=== PATIENT | female | born 1985 ===

== ENCOUNTER 2017-09-04 14:30 | Emergency (ER) | payer OTHER ==
[~2017-09-04] VITALS: Ht 170.2 cm; Wt 65.0 kg
[2017-09-04 14:33] VITALS: Ht 170.2 cm; Wt 65.0 kg
[2017-09-04] MEDS ORDERED: morphine 4 MG/ML VIAL IV STA ×2 (14:45→14:56)
[2017-09-04] MEDS ORDERED: ONDANSETRON 4 MG INJ IV STA (14:45)
[2017-09-04] MEDS ORDERED: FAMOTIDINE 20 MG INJ IV STA (14:45)
[2017-09-04] MEDS ORDERED: SOD CHLORIDE 0.9% 1,000 ML IV STA (14:45)
[2017-09-04] MEDS ORDERED: LORAZEPAM 2 MG INJ ONE (14:57)
[2017-09-04 15:00] LABS: BASOPHIL # 0.1 10^3/ul (0.0-0.1); BASOPHILS % 0.5 % (0.0-2.0); EOSINOPHILS # 0.4 10^3/ul (0.0-0.5); EOSINOPHILS % 3.8 % (0.0-7.0); HEMATOCRIT 39.9 % (37.0-47.0); HEMOGLOBIN 13.7 g/dl (12.0-16.0); LYMPHOCYTES # 2.9 10^3/ul (0.8-2.9); LYMPHOCYTES % 25.7 % (15.0-51.0); MEAN CORPUSCULAR HEMOGLOBIN 30.9 pg (29.0-33.0); MEAN CORPUSCULAR HGB CONC 34.3 g/dl (32.0-37.0); MEAN CORPUSCULAR VOLUME 90.1 fl (82.0-101.0); MEAN PLATELET VOLUME 10.7 fl (7.4-10.4); MONOCYTE # 0.7 10^3/ul (0.3-0.9); MONOCYTES % 5.8 % (0.0-11.0); NEUTROPHIL # 7.3 10^3/ul (1.6-7.5); NEUTROPHILS % 63.8 % (39.0-77.0); PLATELET COUNT 359 10^3/UL (140-415); RED BLOOD COUNT 4.43 10^6/ul (4.20-5.40); RED CELL DISTRIBUTION WIDTH 11.9 % (11.5-14.5); WHITE BLOOD COUNT 11.4 10^3/ul (4.8-10.8)
[2017-09-04] MEDS ORDERED: LORAZEPAM 2 MG INJ IV ONE (15:00)
[2017-09-04 15:37] LABS: URINE BLOOD (Dip) POC Negative (NEGATIVE)
[2017-09-04 15:38] LABS: ALBUMIN 4.4 g/dl (3.3-4.9); ALBUMIN/GLOBULIN RATIO 1.02; BILIRUBIN,INDIRECT 0.5 mg/dl (0-1.1); BILIRUBIN,TOTAL 0.5 mg/dl (0.2-1.3); CALCIUM 10.3 mg/dl (8.4-10.2); CREATININE 0.79 mg/dl (0.44-1.00); POTASSIUM 3.7 mmol/L (3.5-5.1); TOTAL PROTEIN 8.7 g/dl (6.1-8.1)
[2017-09-04] MEDS ORDERED: MULTI PO (15:46)
[2017-09-04] MEDS ORDERED: CHOL500062 PO (15:47)
[2017-09-04 15:57] LABS: ADD UMIC NO; UR ASCORBIC ACID NEGATIVE (NEGATIVE); UR BILIRUBIN (Dip) NEGATIVE (NEGATIVE); UR BLOOD (Dip) NEGATIVE (NEGATIVE); UR CLARITY CLEAR (CLEAR); UR COLOR STRAW (YELLOW); UR GLUCOSE (Dip) NEGATIVE (NEGATIVE); UR KETONES (Dip) NEGATIVE (NEGATIVE); UR LEUKOCYTE ESTERASE (Dip) NEGATIVE Leu/ul (NEGATIVE); UR NITRITE (Dip) NEGATIVE (NEGATIVE); UR SPECIFIC GRAVITY (Dip) 1.002 (1.003-1.030); UR TOTAL PROTEIN (Dip) NEGATIVE (NEGATIVE); UR UROBILINOGEN (Dip) NEGATIVE (NEGATIVE)
--- NOTE | 2017-09-04 18:08 | RADRPT ---
PROCEDURE: CT of the abdomen and pelvis without contrast CLINICAL INDICATION: Abdominal pain. TECHNIQUE: Spiral CT images through the abdomen and pelvis without the use of oral and without the use of intravenous contrast. The administered radiation dose is CTDI 5.63 and DLP 313.46. One or m ore of the following dose reduction techniques were used: automated exposure control, adjustment of the mA and/or kV according to patient size, or use of iterative reconstruction technique. COMPARISON: None FINDINGS: The study is limited by lack of intravenous contrast. Lower thorax: Slight dependent atalectasis of the lung bases is seen.. Liver: The liver is unremarkable in appearance. Biliary: The gallbladder is unremarkable.. No biliary ductal dilatation is seen. Pancreas: Unremarkable. No focal mass or inflammatory process. Spleen: The spleen is unremarkable in appearance Adrenal glands: Unremarkable in appearance. No focal nodule.. Genitourinary: No hydronephrosis or renal calculi are seen.. The bladder is unremarkable in appearan ce.. Gastrointestinal Tract: Evaluation of the bowel is limited by lack of oral contrast. Moderate stool burden is seen. No gross small bowel obstruction, free air, or abscess.. The appendix is not defini tely seen. Clips or possible suture material are seen in the right abdomen which could be due to citlalli or appendectomy.. Lymph nodes: No adenopathy is seen... Vascular structures: The aorta and mesenteric vessels are unremarkable.. Peritoneal cavity: Unremarkable mesentery and peritoneum.. No mass, edema, or ascites. Reproductive Organs: Unremarkable in appearance.. Musculoskeletal: No bony abnormality is seen.. IMPRESSION: Moderately large stool burden. No gross abnormality of the bowel is otherwise seen but the study is limited by lack of oral and intravenous contrast. If symptoms persist, repeat study with contrast wo uld be suggested.. RPTAT: [facility] Physician Christophe Date Time Electronically viewed and signed by Physician Christophe on 09/04/2017 18:08 LE/
[2017-09-04] MEDS ORDERED: LIDOCAINE/MYLANTA 40 ML BTL PO STA (18:09)
--- NOTE | 2017-09-04 18:16 | ERD ---
ER Documentation Chief Complaint Chief Complaint abdominal pain and nausea x 5 days HPI This is a 31-year-old female with a history of gastritis who presents to the emergency room for evaluation of abdominal pain. Patient states she has had abdominal pain for the past 3 days and localizes it to the midportion of her abdomen. The patient denies any spicy foods, she states she is mildly nauseous , denies any vomiting. She denies any shortness of breath however she came to the ER today for evaluation of the pain which she rates as extreme, sharp pain 10 out of 10. She states that she did have half of a beer last night and denies any previous history of pancreatitis. She denies any radiation of this pain and denies any leaving factors for her symptoms at this time ROS All systems reviewed and are negative except as per history of present illness. Medications Home Meds Reported Medications Cholecalciferol (Vitamin D3) (Vitamin D3) 5,000 Unit Tab.rapdis, 5000 UNIT PO Q OTHER DAY 09/04/17 Multivitamins* (Theragran*) 1 Tab Tab, 1 TAB PO DAILY, TAB 09/04/17 Allergies Allergies: Coded Allergies: No Known Allergy (Unverified , 09/04/17) PMhx/Soc Medical and Surgical Hx: pt denies Medical Hx, pt denies Surgical Hx Hx Alcohol Use: Yes (OCCASIONAL WINE) Hx Substance Use: No Hx Tobacco Use: No Smoking Status: Never smoker Physical Exam Vitals Vital Signs Date Time Temp Pulse Resp B/P Pulse Ox O2 Delivery O2 Flow Rate FiO2 09/04/17 14:33 97.7 103 22 117/67 98 Physical Exam INITIAL VITAL SIGNS: Reviewed by me GENERAL: The patient is well developed and appropriate for usual state of health in no apparent distress HEENT: Pupils equal, round, and reactive to light. EOMI. There is no scleral icterus. NECK: C-spine is soft and supple, there is no meningismus. There is no cervical lymphadenopathy. LUNGS: Clear to auscultation bilaterally. There are no rales, wheezes or rhonchi. HEART: Regular rate and rhythm, no murmurs, clicks, rubs or gallops. ABDOMEN: Epigastric tenderness to palpation, negative Bravo sign, otherwise soft, non-tender, non-distended. There are bowel sounds in all four quadrants. No rebound or guarding. EXTREMITIES: There is no peripheral cyanosis or edema. No focal swelling or erythema. NEUROLOGICAL: The patient moves all four extremities with 5/5 strength. Cranial nerves II - XII are intact. Normal gait. Alert and oriented SKIN: There is no apparent rash or petechiae. HEME/LYMPHATIC: There is no evidence of excessive bruising or lymphedema. PSYCHIATRIC: The patient does not appear anxious or depressed. Result Diagram: 09/04/17 1455 09/04/17 1455 Results 24 hrs Laboratory Tests Test 09/04/17 14:55 09/04/17 15:34 09/04/17 15:45 White Blood Count 11.410^3/ul Red Blood Count 4.4310^6/ul Hemoglobin 13.7g/dl Hematocrit 39.9% Mean Corpuscular Volume 90.1fl Mean Corpuscular Hemoglobin 30.9pg Mean Corpuscular Hemoglobin Concent 34.3g/dl Red Cell Distribution Width 11.9% Platelet Count 91463^3/UL Mean Platelet Volume 10.7fl Neutrophils % 63.8% Lymphocytes % 25.7% Monocytes % 5.8% Eosinophils % 3.8% Basophils % 0.5% Nucleated Red Blood Cells % 0.0/100WBC Neutrophils # 7.310^3/ul Lymphocytes # 2.910^3/ul Monocytes # 0.710^3/ul Eosinophils # 0.410^3/ul Basophils # 0.110^3/ul Nucleated Red Blood Cells # 0.010^3/ul Sodium Level 143mmol/L Potassium Level 3.7mmol/L Chloride Level 107mmol/L Carbon Dioxide Level 24mmol/L Anion Gap 16 Blood Urea Nitrogen 15mg/dl Creatinine 0.79mg/dl Glucose Level 96mg/dl Calcium Level 10.3mg/dl Total Bilirubin 0.5mg/dl Direct Bilirubin 0.00mg/dl Indirect Bilirubin 0.5mg/dl Aspartate Amino Transf (AST/SGOT) 33IU/L Alanine Aminotransferase (ALT/SGPT) 26IU/L Alkaline Phosphatase 83IU/L Total Protein 8.7g/dl Albumin 4.4g/dl Globulin 4.30g/dl Albumin/Globulin Ratio 1.02 Lipase 158U/L Serum HCG, Qualitative NEGATIVE Bedside Urine pH (LAB) 7.0 Bedside Urine Protein (LAB) Negative Bedside Urine Glucose (UA) Negative Bedside Urine Ketones (LAB) Negative Bedside Urine Blood Negative Bedside Urine Nitrite (LAB) Negative Bedside Urine Leukocyte Esterase (L Negative Urine Color STRAW Urine Clarity CLEAR Urine pH 8.0 Urine Specific [place] 1.002 Urine Ketones NEGATIVEmg/dL Urine Nitrite NEGATIVEmg/dL Urine Bilirubin NEGATIVEmg/dL Urine Urobilinogen NEGATIVEmg/dL Urine Leukocyte Esterase NEGATIVELeu/ul Urine Hemoglobin NEGATIVEmg/dL Urine Glucose NEGATIVEmg/dL Urine Total Protein NEGATIVEmg/dl Current Medications Medications (Trade) Dose Ordered Sig/Juan Ramon Route PRN Reason Start Time Stop Time Status Last Admin Dose Admin Sodium Chloride (NS) 1,000 ml @ 1,000 mls/hr Q1H STAT IV 09/04/17 14:45 09/04/17 15:44 DC 09/04/17 15:11 Morphine Sulfate (morphine) 4 mg ONCE STAT IV 09/04/17 14:45 09/04/17 14:46 DC 09/04/17 15:11 Ondansetron HCl (Zofran Inj) 4 mg ONCE STAT IV 09/04/17 14:45 09/04/17 14:46 DC 09/04/17 15:11 Famotidine (Pepcid Iv) 20 mg ONCE STAT IV 09/04/17 14:45 09/04/17 14:46 DC 09/04/17 15:11 Morphine Sulfate (morphine) 4 mg ONCE STAT IV 09/04/17 14:56 09/04/17 14:57 DC 09/04/17 15:11 Lorazepam (Ativan) 2 mg ONCE ONCE IV 09/04/17 15:00 09/04/17 15:01 DC 09/04/17 15:11 Lorazepam (Ativan) 2 mg STK-MED ONCE .ROUTE 09/04/17 14:57 09/04/17 14:58 DC Miscellaneous Medication (Gi Cocktail (2)) 40 ml ONCE STAT PO 09/04/17 18:09 09/04/17 18:10 DC Procedures/MDM CT abdomen pelvis without:Moderately large stool burden. No gross abnormality of the bowel is otherwise seen but the study is limited by lack of oral and intravenous contrast. If symptoms persist, repeat study with contrast would be suggested.. This 31-year-old female presents to the ER for evaluation of abdominal pain. When I evaluated her she was in a moderate amount of distress secondary to pain. She is writhing in bed. The patient was given morphine without relief. She was then given an additional dose of morphine with a 2 mg of Ativan. This patient stated that her pain has improved drastically. Lab work was obtained which does not show any significant lab abnormalities. The patient is not , urinalysis is within normal limits and a CT of the abdomen and pelvis reveals a large stool burden. She has no signs of any obstruction at this time. The patient is tolerating p.o. challenge and likely suffering from a gastritis flare. She was given Mylanta, Zantac in the ER and will be discharged home with a prescription for Zantac, and Colace. She was advised to return to the ER any point for reevaluation and she verbalized understanding. Differential diagnoses entertained was broad with potential high acuity. Patient has been evaluated for appendicitis, cholecystitis, and other high risk medical and surgical causes of abdominal pain. Ultimately the patient's evaluation is nondiagnostic. Based on the patient's lack of risk factors, as well as the patient's clinical, laboratory, and imaging data, the patient appears to be low risk for these high risk causes of abdominal pain. Departure Diagnosis: Primary Impression: Acute gastritis Additional Impressions: Abdominal pain Constipation Condition: Stable JOSHUAMARBIN ENRIQUEZ Sep 04, 2017 18:16
[2017-09-04] MEDS ORDERED: DOCU-144 PO (18:17)
[2017-09-04] MEDS ORDERED: RANI150T9 PO (18:17)
[2017-09-04] MEDS ORDERED: RANITIDINE 150 MG TAB PO ONE (18:30)
[2017-09-04 19:09] VITALS: BP 92/54; PULSE 78; RESP 18; TEMP 98.3
== END 2017-09-04 19:10 | disposition home or self-care (01) ==
LOC: E/R 14:30
DX: K29.00 Acute gastritis without bleeding (principal); K59.00 Constipation, unspecified
CPT/HCPCS: 36415; 74176; 80053; 81003; 83690; 84703; 85025; 96374; 96375; 99285; J2060; J2270; J2405; J7030